=== PATIENT | female | born 1960 | race Caucasian/White ===

== ENCOUNTER 2021-08-23 17:05 | Emergency (ER) | payer OTHER ==
[2021-08-23 17:26] VITALS: TEMP 98.1; BMI 18.1
[2021-08-23] MEDS ORDERED: BEBTELOVIMAB (EUA) 175 MG/2 ML VIAL IVPUSH ONE (18:34)
[2021-08-23 19:44] VITALS: BP 150/76; PULSE 70
== END 2021-08-23 20:52 | disposition home or self-care (01) ==
LOC: JER 17:05
DX: U07.1 COVID-19 (principal)
CPT/HCPCS: 99284-25; M0222; Q0222